=== PATIENT | male | born 1970 | race Caucasian/White ===

== ENCOUNTER → 2020-04-21 | Outpatient (CLI) | payer BC ==
[~2020-04-21] MED LIST: GLIP5TAB10 PO; LOSA25TA54 PO; METF500T16 PO
--- NOTE | 2020-04-21 17:08 | KCIC ---
PROCEDURE: HIP BILATERAL WITH PELVIS CLINICAL INDICATION / HISTORY: Reason: RT HIP PAIN X'S 1 MONTH, NO INJURY / Spl. Instructions: / History: . TECHNIQUE: 2 views of the right and left hips each were obtained, along with an AP view of the pelvis. COMPARISON: None FINDINGS: The osseous structures are normally mineralized. There is normal bony alignment present with the femoral heads well-seated within the acetabuli. There is no evidence of acute fracture or dislocation identified. The overlying soft tissues are grossly unremarkable. IMPRESSION: Unremarkable examination of the bilateral hips and pelvis. Electronically signed by: Sol Shah MD (04/21/2020 5:04 PM) [id number]
== END | disposition home or self-care (01) ==
LOC: KCIC 15:56
PROVIDERS: ATTEND Physician Assistant Medical
DX: M25.551 Pain in right hip (principal)
CPT/HCPCS: 73521